=== PATIENT | female | born 1985 | race Caucasian/White ===

== ENCOUNTER 2025-09-12 09:04 | Outpatient (CLI) | payer OTHER, SELFPAY ==
--- NOTE | ~2025-09-12 | XR_ITS ---
EXAMINATION: XR abdomen/kub 1V, 09/12/2025 8:20 [facility] HISTORY: R10.9 - Unspecified abdominal pain COMPARISON: No comparisons available. Technique: 3 view. Findings: Moderate fecal content, no dilated bowel loops No free air. No abnormal calcifications No acute osseous abnormality. Impression: 1. No acute abnormality. Reviewed, dictated and finalized at location P. T CUTTER Impression: 1. No acute abnormality.
--- OUTSIDE RECORDS SUMMARY | 2025-09-12 09:19 | XMS_ITS | Clinical Summary ---
Author Organization [facility] Address [address] [place] [phone] Phone Care Team Providers Care Manager Skilled Name Role Phone Provider, None Primary Care Provider Unavailabl e Medications albuterol 108 (90 Base) MCG/ACT Aerosol Solution take 2 Puffs by inhalation every 4 hours as needed for Cough (shortness of breath). 8.5 g 0 Active Active Problems No known active problems Encounters Date Type Department Care Team Description 08/07/2025 12:42 AM CDT - 08/07/2025 5:56 AM CDT Emergency [facility] Emergency [address] [place] [id number] John Gutierrez MD Right lower quadrant abdominal pain Discharge Disposition: Discharged to home or Selfcare 08/06/2025 Travel from Last 3 Months Social History Tobacco Use Types Packs/Day Years Used Date Smoking Tobacco: Never Assessed Comments No Sex and Gender Information Value Date Recorded Sex Assigned at Not on file Legal Sex Female 10:19 AM CDT Gender Identity Not on file Sexual Orientation Not on file Last Filed Vital Signs Vital Sign Reading Time Taken Comments Blood Pressure 128/76 08/07/2025 5:30 AM CDT Pulse 58 08/07/2025 5:45 AM CDT Temperature 36.3 C (97.4 F) 08/06/2025 11:47 PM CDT Respiratory Rate 16 08/07/2025 5:30 AM CDT Oxygen Saturation 97% 08/07/2025 5:45 AM CDT Inhaled Oxygen Concentration - - Weight 90.7 kg (200 lb) 08/06/2025 11:47 PM CDT Height 165.1 cm (5' 5) 08/06/2025 11:47 PM CDT Body Mass Index 33.28 08/06/2025 11:47 PM CDT Plan of Treatment Health Maintenance Due Date Last Done Comments Mammogram 1983 TdaP Immunization 1983 Hepatitis B Immunization (1 of 3 - 19+ 3-dose series) 2002 Human Papillomavirus (HPV) Immunization (1 - 3-dose SCDM series) 2010 HPV/Cotest 2013 Discussion re Starting/Frequency of Mammograms 2023 Influenza Immunization (#1) 2025 SARS-COV-2 Immunization ( season) 2025 04/04/2021, 03/06/2021 Cervical Cancer Screening (CCS) 10/08/2025 Pap Smear 10/08/2025 10/08/2022 Respiratory Syncytial Virus (RSV) Immunization (Adult) (1 - 1-dose 75+ series) 2058 Hepatitis C Virus (HCV) Screening Completed 01/05/2021 Meningococcal Immunization (ACWY) Aged Out No longer eligible b ased on patient's age to complete this topic Pneumococcal Immunization Combined Aged Out No longer eligible b ased on patient's age to complete this topic Rotavirus Immunization Aged Out No lo nger eligible based on patient's age to complete this topic Procedures Procedure Name Priority Date/Time Associated Diagnosis Comments CT ABDOMEN PELVIS W/ CONTRAST Stat with Interpretation 08/07/2025 3:[address] - ABDOMEN/PELVIS 08/07/2025 12:00 AM CDT CBC WITH AUTO DIFFERENTIAL STAT 08/06/2025 11:50 PM CDT URINALYSIS REFLEX IF INDICATED BY ABNORMAL RESULTS STAT 08/06/2025 11:50 PM CDT UR TEST QUAL STAT 08/06/2025 11:50 PM CDT LIPASE STAT 08/06/2025 11:50 PM CDT CMP (COMPREHENSIVE METABOLIC PANEL) STAT 08/06/2025 11:50 PM CDT COMPLETE BLOOD COUNT (CBC) WITH DIFF STAT 08/06/2025 11:50 PM CDT from Last 3 Months Results * CT ABDOMEN PELVIS W/ CONTRAST (08/07/2025 3:18 AM CDT) Anatomical Region Laterality Modality Abdomen N/A Computed Tomogra phy 08/07/2025 3:18 AM CDT Impressions 08/07/2025 6:39 AM CDT IMPRESSION: 1. No acute abnormality. 2. Punctate nonobstructing right upper pole renal calculi. The preliminary report and any related communication were provided by [facility]'s After Hours service, as documented in the medical record. Narrative 08/07/2025 6:39 AM CDT DICTATING PHYSICIAN: Woo Hong D.O. EXAM DATE: 08/07/2025 3:18 AM EXAM: CT ABDOMEN PELVIS W/ CONTRAST COMPARISON: None. INDICATION: Abdominal pain, acute, nonlocalized, c/o RLQ abdominal pain with nausea x 3 days. HX: Umbilical hernianrepair x 3. PROCEDURE: 100 mL of Isovue 300 was injected IV. Radiation dose reduction technique(s) were used. Radiation dose reduction techniques were employed. CTDIvol: 2.9 - 17.4 mGy. DLP: 1323 mGy-cm. FINDINGS: ABDOMEN: Liver: Normal size and homogeneous parenchyma. Gallbladder: No calcified gallstones. No bile duct dilatation. Spleen: Normal. Adrenals: Normal. Pancreas: No mass or adjacent stranding. Normal caliber duct. Aorta/IVC: Normal caliber. Kidneys/Ureters/Bladder: No mass or hydronephrosis. Punctate nonobstructing right upper pole renal calculi. PELVIS: Reproductive Organs: Probable small left corpus luteal cyst. No pelvic mass. Bowel: No dilation or wall thickening. Normal appendix. Mesentery: No adenopathy. Normal splanchnic veins. Peritoneum: No free fluid. Lower chest: Lung bases are clear. Bones/Body wall: Prior ventral abdominal wall hernia repair with mesh. No destructive osseous lesion. No acute osseous abnormality. Procedure Note Woo Hong, DO - 08/07/2025 DICTATING PHYSICIAN: Woo Hong D.O. EXAM DATE: 08/07/2025 3:18 AM EXAM: CT ABDOMEN PELVIS W/ CONTRAST COMPARISON: None. INDICATION: Abdominal pain, acute, nonlocalized, c/o RLQ abdominal painwith nausea x 3 days. HX: Umbilical hernianrepair x 3. PROCEDURE: 100 mL of Isovue 300 was injected IV. Radiation dose reductiontechnique(s) were used. Radiation dose reduction techniques were employed.CTDIvol: 2.9 - 17.4 mGy. DLP: 1323 mGy-cm. FINDINGS: ABDOMEN: Liver: Normal size and homogeneous parenchyma. Gallbladder: No calcified gallstones. No bile duct dilatation. Spleen: Normal. Adrenals: Normal. Pancreas: No mass or adjacent stranding. Normal caliber duct. Aorta/IVC: Normal caliber. Kidneys/Ureters/Bladder: No mass or hydronephrosis. Punctatenonobstructing right upper pole renal calculi. PELVIS: Reproductive Organs: Probable small left corpus luteal cyst. No pelvicmass. Bowel: No dilation or wall thickening. Normal appendix. Mesentery: No adenopathy. Normal splanchnic veins. Peritoneum: No free fluid. Lower chest: Lung bases are clear. Bones/Body wall: Prior ventral abdominal wall hernia repair with mesh. Nodestructive osseous lesion. No acute osseous abnormality. IMPRESSION: 1. No acute abnormality. 2. Punctate nonobstructing right upper pole renal calculi. The preliminary report and any related communication [facility], as documented in the medical record. John Gutierrez MD IMG CT ORDERABLES Final Result * CT - ABDOMEN/PELVIS (08/07/2025 12:00 AM CDT) 08/07/2025 us Provider Scan IMG CT ORDERABLES Final Result SCAN * (ABNORMAL) URINALYSIS REFLEX IF INDICATED BY ABNORMAL RESULTS (08/06/2025 11:50 PM CDT) SPECIFIC GRAVITY 1.010 1.003 - 1.030 08/07/2025 12:45 AM CDT [facility] URINE PH 6.0 5.0 - 9.0 08/07/2025 12:45 AM CDT [facility] WBC ESTERASE Negative Negative 08/07/2025 12:45 AM CDT [facility] NITRITE Negative Negative 08/07/2025 12:45 AM CDT [facility] PROTEIN, RANDOM URINE 15 mg/dL(A) Negative 08/07/2025 12:45 AM CDT [facility] URINE GLUCOSE, QUAL Negative Negative 08/07/2025 12:45 AM CDT [facility] URINE KETONES Negative Negative 08/07/2025 12:45 AM CDT [facility] UROBILINOGEN Normal Normal mg/dL 08/07/2025 12:45 AM CDT [facility] URINE BLOOD 25 /uL(A) Negative serenity/ul 08/07/2025 12:45 AM CDT [facility] URINALYSIS COLOR Yellow 08/07/20 12:45 AM CDT [facility] URINALYSIS CLARITY Slightly Cloudy 08/07/2025 12:45 [facility] W[facility] (Urine[facility] 0-5 Negative, 0-5 /hpf 08/07/2025 12:45 AM CDT [facility] URINE RBC'S 0-2 Negative, 0-2 /hpf 08/07/2025 12:45 AM CDT [facility] EPITHELIAL CELLS Moderate amount /lpf 08/07/2025 12:45 AM CDT [facility] BACTERIA, URINE Few(A) Negative /hpf 08/07/2025 12:45 AM CDT [facility] Urine URINE SPECIMEN OBTAINED BY CLEAN CATCH PROCEDURE / Unknown Non-Phlebotomy Collection / Unknown 08/06/2025 11:50 PM CDT 08/07/2025 12:26 AM CDT John Gutierrez MD URINE ORDERABLES Final Result [facility] [address] [place] [address] * (ABNORMAL) CBC with Auto Differential (08/06/2025 11:50 PM CDT) WBC 8.47 4.00 - 12.00 10(3)/mcL 08/07/2025 12:[address] [facility] RBC 4.32 3.80 - 5.30 10(6)/mcL 08/07/2025 12:28 AM CDT [facility] HEMOGLOBIN (HGB) 12.5 12.0 - 15.8 g/dL 08/07/2025 12:[address] [facility] HEMATOCRIT (HCT) 38.1 36.0 - 47.0 % 08/07/2025 12:28 AM CDT [facility] MCV 88.2 82.0 - 96.0 fL 08/07/2025 12:[address] [facility] MCH 28.9 26.0 - 34.0 pg 08/07/2025 12:28 AM CDT [facility] MCHC 32.8 31.0 - 36.0 g/dL 08/07/2025 12:[address] [facility] PLATELET COUNT 321 140 - 440 10(3)/mcL 08/07/2025 12:28 AM CDT [facility] RDW 13.1 11.8 - 15.5 % 08/07/2025 12:28 AM CDT [facility] MPV 9.6(L) 9.7 - 12.4 fL 08/07/2025 12:28 AM CDT [facility] NEUTROPHILS 34.4(L) 47.0 - 73.0 % 08/07/2025 12:28 AM CDT [facility] LYMPHOCYTES 52.4(H) 18.0 - 42.0 % 08/07/2025 12:[address] [facility] MONOCYTES 3.7(L) 4.0 - 12.0 % 08/07/2025 12:28 AM CDT [facility] EOSINOPHILS 8.7(H) 0.0 - 5.0 % 08/07/2025 12:[address] [facility] BASOPHILS 0.6 0.0 - 1.0 % 08/07/2025 12:28 AM CDT [facility] IMMATURE GRANULOCYTE 0.2 0.0 - 0.4 % 08/07/2025 12:28 AM CDT [facility] ABSOLUTE NEUTROPHILS 2.91 1.60 - 7.70 10(3)/mcL 08/07/2025 12:28 AM CDT [facility] ABSOLUTE LYMPHOCYTES 4.44(H) 1.30 - 3.20 10(3)/mcL 08/07/2025 12:28 AM CDT [facility] ABSOLUTE MONOCYTES 0.31 0.20 - 1.00 10(3)/mcL 08/07/2025 12:28 AM CDT [facility] ABSOLUTE EOSINOPHIL 0.74(H) 0.00 - 0.40 10(3)/mcL 08/07/2025 12:28 AM CDT [facility] ABSOLUTE BASOPHILS 0.05 0.00 - 0.10 10(3)/mcL 08/07/2025 12:28 AM CDT [facility] ABSOLUTE IMMATURE GRANULOCYTE 0.02 0.00 - 0.03 10 (3) mcL. 08/07/2025 12:28 AM CDT [facility] NRBC PER 100 WBC 0 08/07/20 12:28 AM [facility] Blood Venipuncture / Unknown 08/06/2025 11:50 PM CDT 08/07/2025 12:26 AM CDT us John Gutierrez MD HEMATOLOGY ORDERABLES F inal Result Performing Organization Address [facility] Co de Phone Number [facility] [address] [place] [address] * Ur Test Qual (08/06/2025 11:50 PM CDT) PREG TEST,MONOCLONA L Negative 08/07/2025 12:[address] [facility] Urine Non-Phlebotomy Collection / Unknown 08/06/2025 11:50 PM CDT 08/07/2025 12:26 AM CDT John Gutierrez MD URINE ORDERABLES Final Result Performing Organization Address [facility] Co de Phone Number [facility] [address] [place] [address] * Lipase [id number] (08/06/2025 11:50 PM CDT) Pathologist [facility] LIPASE 22 8 - 78 U/L 08/07/2025 12:[address] [facility] Blood Venipuncture / Unknown 08/06/2025 11:50 PM CDT 08/07/2025 12:26 AM CDT John Gutierrez MD CHEMISTRY ORDERABLES Fi nal Result Performing Organization Address [facility] Co de Phone Number [facility] [address] [place] [address] * (ABNORMAL) Comprehensive Metabolic Panel (Cmp) [id number] (08/06/2025 11:50 PM CDT) SODIUM 140 136 - 145 mmol/L 08/07/2025 12:[address] [facility] POTASSIUM 3.8 3.5 - 5.1 mmol/L 08/07/2025 12:[address] [facility] CHLORIDE 106 98 - 107 mmol/L 08/07/2025 12:51 AM CDT [facility] CO2, VENOUS 25 22 - 30 mmol/L 08/07/2025 12:51 AM CDT [facility] ANION GAP 12.8 <18.0 mmol/L 08/07/2025 12:51 AM CDT [facility] GLUCOSE 117(H) 70 - 99 mg/dL 08/07/2025 12:[address] [facility] BUN 8 5 - 18 mg/dL 08/07/2025 12:51 AM CDT [facility] CREATININE, BLOOD 0.70 0.60 - 1.00 mg/dL 08/07/2025 12:51 AM CDT [facility] BUN/CREATININE RATIO 11(L) 12 - 20 ratio 08/07/2025 12:51 AM CDT [facility] TOTAL PROTEIN 7.1 6.0 - 8.0 g/dL 08/07/2025 12:51 AM CDT [facility] ALBUMIN 4.0 3.5 - 5.0 g/dL 08/07/2025 12:51 AM CDT [facility] A/G RATIO 1.3 1.0 - 2.2 08/07/2025 12:51 AM CDT [facility] CALCIUM 8.7 8.7 - 10.5 mg/dL 08/07/2025 12:51 AM CDT [facility] T BILI 0.1(L) 0.2 - 1.2 mg/dL 08/07/2025 12:51 AM CDT [facility] SGOT (AST) 14 <43 U/L 08/07/2025 12:51 AM CDT [facility] SGPT (ALT) 11 <56 U/L 08/07/2025 12:51 AM CDT [facility] ALKALINE PHOSPHATASE 95 40 - 150 U/L 08/07/2025 12:51 AM CDT [facility] GFR, ESTIMATED >60 >=60 08/07/2025 12:51 AM CDT [facility] Comment: Creatinine Clearance is the preferred criteria for selecting drug dose adjustments in renally impaired patients. The GFR is provided as additional pertinent clinical information. GFR is reported in mL/min/1.73 sq m. Calculation based on the 2020 Chronic Kidney Disease Epidemiology Collaboration (CKD-EPI) equation refit without adjustment for race. GFR, EST. >60 >=60 12:[address] [facility] Comment: Creatinine Clearance is the preferred criteria for selecting drug dose adjustments in renally impaired patients. The GFR is provided as additional pertinent clinical information. GFR is reported in mL/min/1.73 sq m. Calculation based on the 2009 Chronic Kidney Disease Epidemiology Collaboration (CKD-EPI). GFR, EST. NONAFRICAN >60 >=60 08/07/2025 12:[address] [facility] Comment: Creatinine Clearance is the preferred criteria for selecting drug dose adjustments in renally impaired patients. The GFR is provided as additional pertinent clinical information. GFR is reported in mL/min/1.73 sq m. Calculation based on the 2009 Chronic Kidney Disease Epidemiology Collaboration (CKD-EPI). Blood Venipuncture / Unknown 08/06/2025 11:50 PM CDT 08/07/2025 12:26 AM CDT John Gutierrez MD CHEMISTRY ORDERABLES nal Result [facility] [place] [address] from Last 3 Months Insurance [facility] Care Teams Manager Skilled Relationship Specialty Start Date End Date Provider, None [place] PCP - General 08/07/25
[2025-09-12 19:07] LABS: Hematocrit 39.3 % (37.0-47.0); Hemoglobin 12.5 g/dL (12.0-15.0); Immature Granulocyte Percent A 0.1 % (0-0.5); Lymphocytes Absolute Auto 2.95 K/mm3 (0.9-3.2); Mean Corpuscular HGB Conc 31.8 g/dl (32-36); Mean Corpuscular Hemoglobin 28.8 pg (26-34); Mean Corpuscular Volume 90.6 fl (80-100); Nucleated Red Blood Cells Absolute Auto 0.000 K/mm3 (0.0-0.012); Nucleated Red Blood Cells Perc 0.0 % (0.0-0.2); Platelet Count Result 336 k/mm3 (150-375); Red Blood Count 4.34 M/mm3 (4.2-5.4); White Blood Count 6.9 K/mm3 (4.5-10.0)
[2025-09-12 19:34] LABS: Free T4 Free Thyroxine 1.23 ng/dL (0.78-2.19)
[2025-09-12 20:43] LABS: Alanine Aminotransferase 18 U/L (6-35); Albumin Level 4.0 g/dL (3.5-5.1); Alkaline Phosphatase 103 U/L (38-126); Anion Gap 10 mmol/L (4-12); Aspartate Amino Transferase 20 U/L (14-36); Bilirubin,Total 0.3 mg/dL (0.2-1.3); Blood Urea Nitrogen 10 mg/dL (7-17); Calcium 8.9 mg/dL (8.4-10.2); Carbon Dioxide 22 mmol/L (22-30); Chloride 102 mmol/L (98-107); Cholesterol 199 mg/dL (0-200); Estimated Glomerular Filt Rate > 60; Glucose 138 mg/dL (65-110); HDL Direct 50 mg/dL; Potassium 4.1 mmol/L (3.4-5.0); Sodium 134 mmol/L (137-145); Total Protein 7.1 g/dL (6.3-8.2); Triglycerides 146 mg/dL (<150)
[2025-09-12 21:14] LABS: Thyroid Stimulating Hormone 2.280 uIU/mL (0.465-4.680)
== END 2025-09-12 09:05 | disposition home or self-care (01) ==
PROVIDERS: PCP Nurse Practitioner Adult Health; Visit Provider Nurse Practitioner Adult Health
DX: Z00.00 Encounter for general adult medical examination without abnormal findings (principal); R10.9 Unspecified abdominal pain
CPT/HCPCS: 36415; 74018; 80048; 80061; 80076; 84439; 84443; 85025